=== PATIENT | female | born 1975 | race Two or more races ===

== ENCOUNTER 2024-04-21 15:48 | Inpatient (IN) | payer MEDICAID ==
[~2024-04-21] VITALS: Ht 152.4 cm; Wt 90.7 kg
[2024-04-21] MEDS ORDERED: SWABABLE VALVE TRANSFER SET EA MC ONE (15:55)
[2024-04-21] MEDS ORDERED: IOHEXOL 350 100 ML INFUS..BTL ONE (15:55)
[2024-04-21] MEDS ORDERED: IV NORMAL SALINE 250 ML IV ONE (15:55)
[2024-04-21 15:58] LABS: BASOPHILS % (AUTO) 0.5 % (0.0-2.0); DIFFERENTIAL COMMENT 1; EOSINOPHILS # (AUTO) 0.1 K/uL (0.0-0.7); EOSINOPHILS % (AUTO) 2.1 % (0.0-7.0); HEMATOCRIT 38.3 % (31.2-41.9); HEMOGLOBIN 12.6 g/dL (10.9-14.3); LYMPHOCYTES % (AUTO) 36.6 % (20.5-51.5); MEAN CORPUSCULAR HEMOGLOBIN 28.7 uug (24.7-32.8); MEAN CORPUSCULAR HGB CONC 33 g/dL (32.3-35.6); MEAN CORPUSCULAR VOLUME 87.2 fL (75.5-95.3); MONOCYTES # (AUTO) 0.3 K/uL (0.1-1.30); MONOCYTES % (AUTO) 6.1 % (0.0-11.0); NEUTROPHILS # (AUTO) 3.1 K/uL (1.8-8.9); NEUTROPHILS % (AUTO) 54.7 % (38.5-71.5); PLATELET COUNT (AUTO) 194 K/uL (179-408); RED BLOOD CELL COUNT(AUTO) 4.39 MIL/uL (3.63-4.92); RED CELL DISTRIBUTION WIDTH 15.3 % (12.3-17.7); WHITE BLOOD COUNT (AUTO) 5.6 K/uL (3.8-11.8)
[2024-04-21 16:11] LABS: CALCIUM 8.9 mg/dL (8.5-10.1); CARBON DIOXIDE 30 mmol/L (21-32); CHLORIDE 106 mmol/L (98-107); CREATININE 0.6 mg/dL (0.6-1.3); GLUCOSE 130 mg/dL (74-106); POTASSIUM 3.5 mmol/L (3.5-5.1); SODIUM SERUM 144 mmol/L (136-145); UREA NITROGEN, BLOOD 18 mg/dL (7-18)
[2024-04-21] MEDS ORDERED: METOCLOPRAMIDE HCL 10 MG/2 ML VIAL ONE (16:28)
[2024-04-21] MEDS ORDERED: HYDROCORTISONE SOD SUCCINATE 100 MG/2 ML VIAL IV ONE (16:28)
[2024-04-21] MEDS ORDERED: diphenhydrAMINE 50 MG/1 ML VIAL ONE ×2 (16:28→17:17)
[2024-04-21] MEDS: diphenhydrAMINE 50 MG/1 ML VIAL IV ONE ×2 (16:30→17:22)
[2024-04-21] MEDS: METOCLOPRAMIDE HCL 10 MG/2 ML VIAL IV ONE (16:31)
[2024-04-21] MEDS: HYDROCORTISONE SOD SUCCINATE 100 MG/2 ML VIAL IV ONE (16:34)
[2024-04-21] MEDS ORDERED: CLON0.1T PO (16:56)
[2024-04-21] MEDS ORDERED: METF-440 PO (16:56)
[2024-04-21] MEDS ORDERED: GABA-532 PO (16:56)
[2024-04-21] MEDS ORDERED: TRAZ-257 PO (16:56)
[2024-04-21] MEDS ORDERED: EZET10TA15 PO (16:56)
[2024-04-21] MEDS ORDERED: EVOL140S2 SQ (16:56)
[2024-04-21] MEDS ORDERED: GABA600T12 PO (16:56)
[2024-04-21] MEDS ORDERED: TERB250T53 PO (16:56)
[2024-04-21] MEDS ORDERED: SENN8.6T19 PO (16:56)
[2024-04-21] MEDS ORDERED: METO25TA6 PO (16:56)
[2024-04-21] MEDS ORDERED: LOSA100T31 PO (16:56)
[2024-04-21] MEDS ORDERED: MECL-225 PO (16:56)
[2024-04-21] MEDS ORDERED: FAMO20TA8 PO (16:56)
[2024-04-21] MEDS ORDERED: CHOL100034 PO (16:56)
[2024-04-21] MEDS ORDERED: PARO10TA86 PO (16:56)
[2024-04-21] MEDS ORDERED: CARV25TA2 PO (16:56)
[2024-04-21] MEDS ORDERED: HYDR50TA4 PO (16:56)
[2024-04-21] MEDS ORDERED: FAMOTIDINE. 20 MG/2 ML VIAL IV ONE (17:17)
[2024-04-21] MEDS: FAMOTIDINE. 20 MG/2 ML VIAL IV ONE (17:23)
[2024-04-21] MEDS ORDERED: hydrALAZINE HCL 20 MG/1 ML VIAL ONE (18:26)
[2024-04-21] MEDS: hydrALAZINE HCL 20 MG/1 ML VIAL IV ONE (18:30)
[2024-04-21 20:03] LABS: *BILIRUBIN,URIN NEGATIVE (NEGATIVE); *BLOOD, URINE 1+ (NEGATIVE); *CLARITY,URINE CLEAR (CLEAR); *COLOR,URINE YELLOW (YELLOW); *KETONES,URINE NEGATIVE (NEGATIVE); *PROTEIN,URINE NEGATIVE (NEGATIVE); *UROBILINOGEN,URINE 0.2 E.U./dl (NORMAL); LEUKOCYTE ESTERASE ,URINE NEGATIVE (NEGATIVE); NITRITE, URINE NEGATIVE (NEGATIVE); UGLUCOSE NEGATIVE (NEGATIVE)
[2024-04-21] MEDS ORDERED: SENNOSIDES 1 TABLET PO PRN (20:30)
[2024-04-21] MEDS ORDERED: ONDANSETRON 4 MG/2 ML VIAL IV PRN (20:30)
[2024-04-21 20:45] LABS: BACTERIA,URINE FEW /HPF (NONE SEEN); SQUAMOUS EPITHELIAL CELL,UR FEW /HPF (NONE SEEN); WBC,URINE 0-3 /HPF (0-3)
[2024-04-21 21:40] VITALS: BP 118/65; TEMP 98.5; O2SAT 97
[2024-04-21] MEDS: GABAPENTIN 100 MG CAPSULE PO SCH (21:54)
[2024-04-21] MEDS: METOPROLOL TARTRATE 25 MG TABLET PO SCH (21:54)
[2024-04-21] MEDS: HYDROCODONE/APAP 5-325MG TABLET PO PRN (22:02)
[2024-04-22] VITALS: BP 124/66; TEMP 98.5; O2SAT 97
[2024-04-22 05:52] VITALS: BP 135/73; TEMP 98.4; O2SAT 96
[2024-04-22 06:39] LABS: BASOPHILS % (AUTO) 0.4 % (0.0-2.0); EOSINOPHILS % (AUTO) 0.4 % (0.0-7.0); HEMATOCRIT 37.8 % (31.2-41.9); HEMOGLOBIN 12.6 g/dL (10.9-14.3); LYMPHOCYTES # (AUTO) 2.8 K/uL (0.8-4.8); MEAN CORPUSCULAR HEMOGLOBIN 28.8 uug (24.7-32.8); MEAN CORPUSCULAR HGB CONC 33 g/dL (32.3-35.6); MEAN CORPUSCULAR VOLUME 86.3 fL (75.5-95.3); MONOCYTES # (AUTO) 0.5 K/uL (0.1-1.30); MONOCYTES % (AUTO) 6.3 % (0.0-11.0); NEUTROPHILS # (AUTO) 4.9 K/uL (1.8-8.9); NEUTROPHILS % (AUTO) 58.9 % (38.5-71.5); PLATELET COUNT (AUTO) 211 K/uL (179-408); RED BLOOD CELL COUNT(AUTO) 4.38 MIL/uL (3.63-4.92); RED CELL DISTRIBUTION WIDTH 15.7 % (12.3-17.7); WHITE BLOOD COUNT (AUTO) 8.3 K/uL (3.8-11.8)
[2024-04-22 06:55] LABS: DIFFERENTIAL COMMENT 1
[2024-04-22 07:01] LABS: ALBUMIN 3.1 g/dL (3.4-5.0); BILIRUBIN,TOTAL 0.3 mg/dL (0.2-1.0); CREATININE 0.7 mg/dL (0.6-1.3); MAGNESIUM 1.9 mg/dL (1.8-2.4); PHOSPHOROUS 4.9 mg/dL (2.5-4.9); POTASSIUM 3.6 mmol/L (3.5-5.1); TOTAL PROTEIN, SERUM 6.8 g/dL (6.4-8.2)
[2024-04-22 07:11] LABS: THYROID STIMULATING HORMONE 4.637 mIU/mL (0.358-3.740)
[2024-04-22 08:00] VITALS: BP 143/71; TEMP 98; O2SAT 97
[2024-04-22] MEDS ORDERED: METFORMIN HCL 500 MG TABLET PO SCH ×2 (08:00→09:00)
[2024-04-22] MEDS: PAROXETINE HCL 10 MG TABLET PO SCH (08:51)
[2024-04-22] MEDS: FAMOTIDINE 20 MG TABLET PO SCH (08:52)
[2024-04-22] MEDS: ASPIRIN EC 325 MG TABLET.DR PO SCH (08:52)
[2024-04-22] MEDS: LOSARTAN POTASSIUM 50 MG TABLET PO SCH (08:53)
[2024-04-22] MEDS: EZETIMIBE 10 MG TABLET PO SCH (08:55)
[2024-04-22] MEDS ORDERED: GABAPENTIN 100 MG CAPSULE PO SCH (09:00)
[2024-04-22 12:00] VITALS: BP 118/64; TEMP 97.8; O2SAT 95
[2024-04-22] MEDS ORDERED: GABAPENTIN 300 MG CAPSULE PO PRN (12:00)
[2024-04-22] MEDS ORDERED: DEXTROSE 50% 50 ML DISP.SYRIN IV PRN ×2 (12:00→12:45)
[2024-04-22] MEDS ORDERED: INSULIN REGULAR, HUMAN 1000 UNIT/10 ML VIAL SQ PRN (12:45)
[2024-04-22 16:00] VITALS: BP 133/71; TEMP 98; O2SAT 97
[2024-04-22] MEDS: BLOOD SUGAR DIAGNOSTIC 1 EACH STRIP VI SCH (16:24)
[2024-04-22] MEDS ORDERED: BLOOD SUGAR DIAGNOSTIC 1 EACH STRIP VI SCH (16:30)
[2024-04-22 19:30] VITALS: BP 137/71; TEMP 98.1; O2SAT 98
[2024-04-22] MEDS: ACETAMINOPHEN 325 MG TABLET PO PRN (21:01)
[2024-04-22] MEDS: INSULIN REGULAR, HUMAN 1000 UNIT/10 ML VIAL SQ PRN (21:13)
[2024-04-23] VITALS (7 sets, daily range): BP systolic 143–170; BP diastolic 65–80; TEMP 97.7–98.9; O2SAT 96–99
[2024-04-23 06:21] LABS: BASOPHILS % (AUTO) 0.8 % (0.0-2.0); EOSINOPHILS # (AUTO) 0.2 K/uL (0.0-0.7); EOSINOPHILS % (AUTO) 3.3 % (0.0-7.0); HEMATOCRIT 36.8 % (31.2-41.9); HEMOGLOBIN 12.5 g/dL (10.9-14.3); LYMPHOCYTES # (AUTO) 2.9 K/uL (0.8-4.8); LYMPHOCYTES % (AUTO) 55.6 % (20.5-51.5); MEAN CORPUSCULAR HEMOGLOBIN 29.7 uug (24.7-32.8); MEAN CORPUSCULAR HGB CONC 34 g/dL (32.3-35.6); MEAN CORPUSCULAR VOLUME 87.4 fL (75.5-95.3); MONOCYTES # (AUTO) 0.4 K/uL (0.1-1.30); MONOCYTES % (AUTO) 7.3 % (0.0-11.0); NEUTROPHILS # (AUTO) 1.7 K/uL (1.8-8.9); PLATELET COUNT (AUTO) 185 K/uL (179-408); RED BLOOD CELL COUNT(AUTO) 4.21 MIL/uL (3.63-4.92); RED CELL DISTRIBUTION WIDTH 15.6 % (12.3-17.7); WHITE BLOOD COUNT (AUTO) 5.3 K/uL (3.8-11.8)
[2024-04-23 06:25] LABS: CALCIUM 8.6 mg/dL (8.5-10.1); CREATININE 0.7 mg/dL (0.6-1.3); POTASSIUM 3.8 mmol/L (3.5-5.1)
[2024-04-23] MEDS: SUMATRIPTAN SUCCINATE 50 MG TABLET PO ONE (12:08)
[2024-04-24] VITALS: BP 148/72; TEMP 97.9; O2SAT 96
[2024-04-24 04:00] VITALS: BP 152/75; TEMP 98.2; O2SAT 98
[2024-04-24 07:25] VITALS: BP 143/71; TEMP 98; O2SAT 99
[2024-04-24] MEDS: SUMATRIPTAN SUCCINATE 50 MG TABLET PO ONE (10:19)
[2024-04-24 13:50] VITALS: BP 172/72; O2SAT 99
[2024-04-24] MEDS: CLONIDINE HCL 0.1 MG TABLET PO PRN (15:27)
[2024-04-24 16:14] VITALS: BP 152/71; TEMP 98.2; O2SAT 98
[2024-04-24 19:00] VITALS: BP 142/68; TEMP 98.2; O2SAT 97
[2024-04-24] MEDS: METOPROLOL TARTRATE 50 MG TABLET PO SCH (20:49)
[2024-04-25] VITALS: BP 142/68; TEMP 97.8; O2SAT 100
[2024-04-25 04:00] VITALS: BP 131/48; TEMP 97.8; O2SAT 99
[2024-04-25 08:00] VITALS: BP 163/83; TEMP 98; O2SAT 98
[2024-04-25 08:38] VITALS: BP 163/83
[2024-04-25] MEDS ORDERED: ASPI81TA31 PO (10:12)
[2024-04-25] MEDS ORDERED: MECL-225 PO (10:12)
[2024-04-25] MEDS ORDERED: METO50TA16 PO (10:12)
[2024-04-25] MEDS ORDERED: SUMA100T16 PO (10:12)
== END 2024-04-25 11:29 | disposition home or self-care (01) | DRG 54 ==
LOC: ER 15:48 → TELE3 20:55 → MEDSURG3 04-25 10:17
PROVIDERS: ADMIT Internal Medicine; ATTEND Internal Medicine
DX: G43.909 Migraine, unspecified, not intractable, without status migrainosus (principal); E11.42 Type 2 diabetes mellitus with diabetic polyneuropathy; E66.9 Obesity, unspecified; Z86.718 Personal history of other venous thrombosis and embolism; Z68.39 Body mass index [BMI] 39.0-39.9, adult; E78.5 Hyperlipidemia, unspecified; K21.9 Gastro-esophageal reflux disease without esophagitis; Z91.041 Radiographic dye allergy status; I10 Essential (primary) hypertension; Z79.84 Long term (current) use of oral hypoglycemic drugs; Z79.899 Other long term (current) drug therapy; F32.A Depression, unspecified; M54.2 Cervicalgia
CPT/HCPCS: 36415; 70450; 70496; 70551; 83735; 83921; 84100; 84443; 84484; 85025; 85730; 93307; A4663; G0378; J0360; J1200; J1720; J1815; J2765; J3490; Q9967